=== PATIENT | male | born 1970 | race Hispanic/Latino ===

== ENCOUNTER 2025-04-16 10:51 | Emergency (ER) | payer BC ==
[~2025-04-16] VITALS: Ht 157.5 cm; Wt 68.0 kg
[2025-04-16] MEDS ORDERED: TETANUS/DIPHTHERIA TOX ADULT 0.5 ML SYR ONE (11:16)
[2025-04-16 11:26] VITALS: PULSE 85
[2025-04-16] MEDS: TETANUS/DIPHTHERIA TOX ADULT 0.5 ML SYR IM ONE (11:32)
[2025-04-16 11:45] VITALS: RESP 16; TEMP 98.7
[2025-04-16 13:15] VITALS: BP 158/95; PULSE 73; RESP 18; O2SAT 98
== END 2025-04-16 13:10 | disposition home or self-care (01) ==
LOC: ER 11:13
DX: S01.01XA Laceration without foreign body of scalp, initial encounter (principal); W20.8XXA Other cause of strike by thrown, projected or falling object, initial encounter; Y92.89 Other specified places as the place of occurrence of the external cause
CPT/HCPCS: 70450; 72125; 90471; 90714; 99283

== ENCOUNTER 2025-04-23 18:16 | Emergency (ER) | payer BC ==
[~2025-04-23] VITALS: Ht 157.5 cm; Wt 68.0 kg
[2025-04-23 22:30] VITALS: PULSE 58; RESP 16; TEMP 98.4; O2SAT 100
== END 2025-04-23 22:39 | disposition home or self-care (01) ==
LOC: ER 22:33
DX: Z48.02 Encounter for removal of sutures (principal)
CPT/HCPCS: 99283